=== PATIENT | female | born 1995 | race Caucasian/White ===

== ENCOUNTER 2023-05-25 21:15 | Emergency (ER) | payer SELFPAY ==
[~2023-05-25 21:15] MED LIST: Iopamidol 370 76% 100 ML VIAL ONE
[2023-05-25] MEDS ORDERED: Sodium Chloride 0.9% 1,000 ML ONE (22:17)
[2023-05-25] MEDS ORDERED: Ondansetron PF 4 MG/2 ML Vial ONE (22:17)
[2023-05-25] MEDS ORDERED: Ketorolac Tromethamine 30 MG/ML VIAL ONE (22:17)
[2023-05-25 22:34] LABS: Bilirubin Negative (Negative); Blood, Urine Trace (Negative); Glucose, Urine (Dipstick) Negative (Negative); Ketone, Urine Negative (Negative); Leukocyte Negative (Negative); Nitrite Negative (Negative); Protein, Urine (Dipstick) Negative (Neg-Trace); Specific Gravity, Urine 1.025 (1.005-1.030)
[2023-05-25 22:35] LABS: Clarity Hazy (Clear)
[2023-05-25 22:36] LABS: Pregnancy Test - Urine (BHCG) Negative (Negative); Pregu Control Background? CLEAR/WHITE (CLR/WHITE); Pregu Control Bar Appear? YES (CONTROL BAR); Specific Gravity 1.025 (1.002-1.036)
[2023-05-25 22:52] LABS: #Basophils 0.1 thou/uL (0.0-0.2); #Lymphocytes 1.3 thou/uL (1.20-3.40); #Monocytes 0.5 thou/uL (0.11-0.59); #Neutrophils 12.3 thou/uL (1.40-6.50); %Basophils 0.8 % (0.0-1.0); %Eosinophils 0.3 % (0.0-10.0); %Lymphocytes 8.8 % (21.0-51.0); %Monocytes 3.6 % (0.0-10.0); %Neutrophils 86.4 % (42.0-75.0); Hematocrit 42.5 % (36.0-47.0); Hemoglobin 13.8 g/dL (12.0-16.0); Mean Corpuscular HGB CONC 32.4 g/dL (32.0-36.0); Mean Corpuscular Hemoglobin 27.7 pg (27.0-31.0); Mean Corpuscular Volume 85.5 fl (78.0-98.0); Mean Platelet Volume 10.1 fL (7.4-10.4); Platelet Count 251 10x3/uL (130-400); RBC Distribution Width 11.5 % (11.5-14.5); Red Blood Cell (RBC) Count 4.98 mill/uL (4.20-5.40); White Blood Cell (WBC) Count 14.2 10x3/uL (4.8-10.8)
[2023-05-25 22:54] LABS: Bacteria/HPF 2+ HPF (None Seen); CAUTI Indications for Culture Pelvic or flank pain; RBC/HPF 0-3 HPF (0-3); Squamous Epithelial 0-3 HPF (0-3); WBC/HPF 0-3 HPF (0-3)
[2023-05-25 22:55] LABS: Urine Culture Reflex No No
[2023-05-25 23:02] LABS: ALT (SGPT) 19 U/L (8-55); AST (SGOT) 11 U/L (5-34); Albumin 4.3 g/dL (3.5-5.0); Alkaline Phosphatase 79 U/L (40-110); Anion Gap 12 mmol/L (10-20); BUN (Urea Nitrogen) 11 mg/dL (7.0-18.7); Calc. Creatinine Clearance 0 mL/min (70-130); Carbon Dioxide 23 mmol/L (22-29); Chloride 107 mmol/L (98-107); Estimated GFR 98; Globulin 2.5 g/dL (2.4-3.5); Glucose 100 mg/dL (70-105); Lipase 13 U/L (8-78); Potassium 3.9 mmol/L (3.5-5.1); Protein, Total 6.8 g/dL (6.0-8.3); Sodium 138 mmol/L (136-145)
[2023-05-25] MEDS ORDERED: Acetaminophen 500 MG TAB ONE (23:08)
[2023-05-25] MEDS ORDERED: Cyclobenzaprine 10 MG TAB ONE (23:08)
[2023-05-26] MEDS ORDERED: Cephalexin 250 MG CAP ONE (00:14)
== END 2023-05-26 00:35 | disposition home or self-care (01) ==
LOC: NAV ERS 21:15
DX: A08.4 Viral intestinal infection, unspecified (principal); N39.0 Urinary tract infection, site not specified; M54.50 Low back pain, unspecified; B34.9 Viral infection, unspecified; F17.210 Nicotine dependence, cigarettes, uncomplicated
CPT/HCPCS: 74177; 80053; 81001; 81025; 83690; 85025; 87081; 87086; 87430; 87804; 96361; 96374; 96375; J1885; J2405; J7050

== ENCOUNTER 2025-08-27 07:23 | Emergency (ER) | payer SELFPAY ==
[2025-08-27] MEDS ORDERED: Ketorolac Tromethamine 30 MG (1 mL) VIAL ONE (07:55)
== END 2025-08-27 08:13 | disposition home or self-care (01) ==
LOC: NAV ERS 07:23
DX: M54.50 Low back pain, unspecified (principal); F17.210 Nicotine dependence, cigarettes, uncomplicated
CPT/HCPCS: 96372; 99283; J1885; J2919